=== PATIENT | male | born 1980 | race Caucasian/White ===

== ENCOUNTER 2018-09-22 13:49 | Emergency (ER) | payer OTHER, MEDICARE ==
[~2018-09-22] VITALS: Ht 172.7 cm; Wt 109.1 kg
[~2018-09-22 13:49] MED LIST: /CELE20CA; /ESOM40CA OR; SKEL800T5; VENL37.5; VENL75TA2; VICO5TAB
[2018-09-22] MEDS ORDERED: CRES40TA PO (14:01)
[2018-09-22] MEDS ORDERED: OLAN10TA2 PO (14:01)
[2018-09-22] MEDS ORDERED: GEMF600T5 PO (14:01)
[2018-09-22] MEDS ORDERED: NITR0.4S14 SL (14:01)
[2018-09-22] MEDS ORDERED: OMEP20CA3 PO (14:01)
[2018-09-22] MEDS ORDERED: GABA-843 PO (14:01)
[2018-09-22] MEDS ORDERED: CETI10CH PO (14:01)
[2018-09-22] MEDS ORDERED: HYDR-4514 PO (14:01)
[2018-09-22] MEDS ORDERED: LAMO200T2 PO (14:01)
[2018-09-22] MEDS ORDERED: PRAZ1CAP PO ×2 (14:01)
[2018-09-22] MEDS ORDERED: DICL75TA PO (14:01)
[2018-09-22] MEDS ORDERED: VITA50005 PO (14:01)
[2018-09-22] MEDS ORDERED: CLON0.5T8 PO (14:01)
[2018-09-22] MEDS ORDERED: LEXA1TAB2 PO (14:01)
[2018-09-22] MEDS ORDERED: GI COCKTAIL 50ML BTL(HYOSCYAMINE/MAALOX/LIDOCAINE VISCOUS)(1:3:1) PO ONE (14:15)
[2018-09-22 14:22] LABS: BASO % 0.4 % (0.0-1.0); EOS # 0.1 10^3/uL (0.0-0.50); EOS % 1.6 % (0.0-3.0); HEMATOCRIT 41.8 % (42.0-52.0); HEMOGLOBIN 14.7 g/dl (13.5-17.5); LYMPH # 2.6 10^3/uL (1.5-4.5); LYMPH % 36.4 % (24.0-44.0); MEAN CORPUSCULAR HEMOGLOBIN 33.6 pg (27.0-33.0); MEAN CORPUSCULAR HGB CONC 35.2 g/dl (32.0-36.5); MEAN CORPUSCULAR VOLUME 95.7 fl (80.0-96.0); MONO # 0.6 10^3/uL (0.0-0.8); MONO % 8.9 % (0.0-5.0); NEUTROPHILS # 3.7 10^3/uL (1.8-7.7); NEUTROPHILS % 52.4 % (36.0-66.0); PLATELET COUNT, AUTOMATED 132 10^3/uL (150-450); RED BLOOD COUNT 4.37 10^6/uL (4.30-6.10)
--- NOTE | 2018-09-22 14:26 | REP ---
Clinical: Chest pain . Comparison: None . Findings: The mediastinum and cardiac silhouette are stable and within normal limits for portable technique. Subtle left lower lobe infiltrate is suggested and should be correlated with auscultation. No effusion. No pneumothorax. Impression: Left lower lobe infiltrate suggested. Electronically Signed by Gumaro Roa MD 09/22/2018 02:17 P
[2018-09-22] MEDS ORDERED: SUCRALFATE SUSP 1GM/10ML UD PO ONE (14:30)
[2018-09-22 14:32] LABS: INR 1.01; PROTHROMBIN TIME 13.4 SECONDS (12.1-14.4)
[2018-09-22 14:35] LABS: D-DIMER QUANT 292.18 ng/ml (<500)
[2018-09-22 14:55] LABS: ALBUMIN 3.9 GM/DL (3.2-5.2); ALT/SGPT 72 U/L (12-78); BILIRUBIN,DIRECT 0.1 MG/DL (0.0-0.2); BILIRUBIN,TOTAL 0.4 MG/DL (0.2-1.0); BLOOD UREA NITROGEN 13 MG/DL (7-18); CALCIUM LEVEL 8.3 MG/DL (8.5-10.1); CARBON DIOXIDE LEVEL 25 MEQ/L (21-32); CHLORIDE LEVEL 111 MEQ/L (98-107); CPK CREATINE PHOSPHOKINASE 378 U/L (39-308); CREATININE FOR GFR 1.01 MG/DL (0.70-1.30); GLOMERULAR FILTRATION RATE > 60.0 (>60); GLUCOSE, FASTING 90 MG/DL (70-100); LIPASE 122 U/L (73-393); MB/CK RELATIVE INDEX 1.08 (< OR =4); NT-PRO BNP 42 PG/ML (<125); POTASSIUM SERUM 4.1 MEQ/L (3.5-5.1); SODIUM LEVEL 143 MEQ/L (136-145); TOTAL PROTEIN 6.5 GM/DL (6.4-8.2); TROPONIN I < 0.02 NG/ML (< 0.10)
[2018-09-22] MEDS ORDERED: ISOVUE-370 76% 100ML VIAL (Q9967) As Ordered ONE (15:14)
--- NOTE | 2018-09-22 15:42 | REP ---
Clinical: Acute chest pain. Technique: Axial contrast enhanced images from the thoracic inlet to the upper abdomen using 100 ml Isovue 370 intravenous contrast material with coronal and sagittal re-formations. Findings: Satisfactory enhancement of the pulmonary vasculature is achieved and no filling defects are identified to suggest pulmonary embolus. Thoracic aorta is normal caliber without aneurysm or dissection. Heart and pericardium are normal. Bilateral lung arteaga are well aerated and clear without acute pulmonary parenchymal consolidation or atelectasis. No pleural effusion/reaction. No pneumothorax. No adenopathy. 3 mm and 7 mm noncalcified densities are identified in the basilar right upper lobe (images 56; 58). Limited upper abdomen suggests fatty infiltration to the liver with few prominent lymph nodes at the greg hepatis measuring approximately 2.1 cm maximal diameter. Impression: 1. No evidence for pulmonary embolus. 2. No acute pleuroparenchymal or mediastinal process. 3. Two noncalcified nodules in the basilar right upper lobe warrants followup examination in 6-9 months. 4. Hepatic steatosis suggested along with few prominent lymph nodes at the greg hepatis. Electronically Signed by Gumaro Roa MD 09/22/2018 03:33 P
[2018-09-22] MEDS ORDERED: SUCR1SS PO (15:57)
[2018-09-22 16:15] VITALS: BP 117/74
--- NOTE | 2018-09-23 07:23 | ECGEPIP ---
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
--- NOTE | 2018-09-23 17:11 | ED PDOC ---
Post-Departure Follow-Up Dr Orlando Remy faxed formal report of cta chest for fu Jyada Salcido MD Sep 23, 2018 17:11
== END 2018-09-22 16:33 | disposition home or self-care (01) ==
LOC: M ED 13:49
DX: R07.9 Chest pain, unspecified (principal); R06.02 Shortness of breath; R91.8 Other nonspecific abnormal finding of lung field; K21.9 Gastro-esophageal reflux disease without esophagitis; E78.5 Hyperlipidemia, unspecified; F43.10 Post-traumatic stress disorder, unspecified; G47.30 Sleep apnea, unspecified; Z99.89 Dependence on other enabling machines and devices; G89.29 Other chronic pain; Z79.899 Other long term (current) drug therapy; Z88.8 Allergy status to other drugs, medicaments and biological substances; F17.210 Nicotine dependence, cigarettes, uncomplicated
CPT/HCPCS: 36415; 71045; 71275; 80048; 80076; 82550; 82553; 83690; 83880; 84443; 84484; 85025; 85379; 85610; 93005; 93041; 94760; 99285; Q9967

== ENCOUNTER → 2019-06-14 | Outpatient (CLI) | payer OTHER ==
[~2019-06-14] MED LIST changes: -/CELE20CA; -/ESOM40CA OR; +CELE1CAP4; +CETI10CH PO; +CLON0.5T8 PO; +CRES40TA PO; +DICL75TA PO; +GABA-843 PO; +GEMF600T5 PO; +HYDR-4514 PO; +LAMO200T2 PO; +LEXA1TAB2 PO; +NEXI1CAP3 OR; +NITR0.4S14 SL; +OLAN10TA2 PO; +OMEP20CA4 PO; +PRAZ1CAP PO; +SUCR1SS PO; +VITA50005 PO
--- NOTE | 2019-06-25 02:11 | ECWPNPC ---
PATIENT NAME: LASHAWN MITTAL : 1980 GENDER: MALE VISIT DATE: 06/14/2019 DISCHARGE DATE: 06/14/19 1209 VISIT LOCKED DATE TIME: PHYSICIAN: JORDON MORENO MD RESOURCE: JORDON MORENO MD REASON FOR APPOINTMENT 1. CHRONIC THORACIC PAIN HISTORY OF PRESENT ILLNESS PAIN SCREENING: PATIENT HAS A COMPLAINT OF ACUTE OR CHRONIC PAIN :YES 39 YEAR OLD MALE PATIENT WITH A HISTORY OF CHRONIC BACK PAIN. THE PATIENT DESCRIBES THE PAIN SHARP, STABBING, SHOOTING, AND DAILY WITH A PAIN SCORE OF 4-6/10 DEPENDING ON PHYSICAL ACTIVITY. THE PATIENT STATES HIS MAIN PAIN IS IN HIS THORACIC AND LOW BACK, WITH RADIATION DOWN MAINLY HIS LEFT BUTTOCK. 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 THE PATIENT SAYS HIS PAIN IS AFFECTING HIS ABILITY TO PERFORM HIS DAILY ACTIVITIES SUCH MOVING AROUND, RESTING, AND WORKING AROUND HIS HOUSE. PATIENT DENIES UNEXPLAINABLE WEIGHT LOSS, FEVER, CHILLS, NEW CHANGES ON HIS URINARY OR BOWEL CONTROL. FALL RISK SCREENING: SCREENING :NO FALLS REPORTED IN THE LAST YEAR CURRENT MEDICATIONS TAKING CETIRIZINE HCL 10 MG TABLET 1 TABLET ORALLY ONCE A DAY TAKING OLANZAPINE 10 MG TABLET DISINTEGRATING 1 TABLET ORALLY ONCE A DAY TAKING ROSUVASTATIN CALCIUM 40 MG TABLET 1 TABLET ORALLY ONCE A DAY TAKING PRAZOSIN HCL 2 MG CAPSULE 1 CAPSULE AT BEDTIME ORALLY ONCE A DAY TAKING GEMFIBROZIL 600 MG TABLET 1 TABLET ORALLY DAILY TAKING DULOXETINE HCL 30 MG CAPSULE DELAYED RELEASE PARTICLES 1 CAPSULE ORALLY DAILY TAKING DICLOFENAC 35 MG CAPSULE 1 CAPSULE WITH FOOD OR MILK NEEDED ORALLY THREE TIMES A DAY TAKING OMEPRAZOLE 40 MG CAPSULE DELAYED RELEASE 1 CAPSULE ORALLY ONCE A DAY TAKING CHOLECALCIFEROL 1000 UNIT CAPSULE 1 CAPSULE ORALLY ONCE A DAY TAKING GABAPENTIN 300 MG CAPSULE 2 CAPSULE ORALLY 2 TABS AT DINNER AND 4 TABS AT BEDTIME TAKING LAMOTRIGINE 200 MG TABLET 1 TABLETS ORALLY BID TAKING CLONAZEPAM 0.5 MG TABLET 1 TABLET AT BEDTIME ORALLY ONCE A DAY TAKING HYDROCODONE-ACETAMINOPHEN 7.5-325 MG TABLET 1 TABLET NEEDED ORALLY EVERY 6 HRS TAKING DIAZEPAM 5 MG TABLET 1 TABLET NEEDED ORALLY ONCE A DAY MEDICATION LIST REVIEWED AND RECONCILED WITH THE PATIENT PAST MEDICAL HISTORY HYPERLIPIDEMIA CHRONIC BACK PAIN ACID REFLUX POST TRAUMATIC STRESS DISORDER SLEEP APNEA SCOLIOSIS ALLERGIES NAPROXEN: ANAPHYLAXIS SURGICAL HISTORY HERNIA REPAIR 09/2014 FAMILY HISTORY PT DENIES ANY FAMILY HISTORY OF DIABETES, HEART DISEASE, HYPERTENSION, CANCER, AND STROKE. SOCIAL HISTORY GENERAL: TOBACCO USE ARE YOU A:NONSMOKER HOUSING: OWNS HOME. EDUCATION LEVEL OF EDUCATION:HIGH SCHOOL LANGUAGE LANGUAGES SPOKEN:TURKISH RECREATIONAL DRUG USE DRUG USE?NO LEARNING BARRIERS / SPECIAL NEEDS BARRIERS TO LEARNING?NO HEARING IMPAIRED?YES :HEARING AIDES VISION IMPAIRED?NO COGNITIVELY IMPAIRED?NO PT STATES HE DOES HAVE DIFFICULTY WRITING, HE IS LEFT HANDED AND HAS TRIGGER FINGER IN LEFT HAND READINESS TO LEARN?YES PAIN CLINIC PFS, CLERGY, PUBLIC HEALTH REFERRALS HAS THE PATIENT BEEN EDUCATED REGARDING HIS/HER PLAN OF CARE?YES HAS THE PATIENT BEEN EDUCATED REGARDING PAIN, THE RISK FOR PAIN, THE IMPORTANCE OF EFFECTIVE PAIN MANAGEMENT, AND THE PAIN ASSESSMENT PROCESS?YES LATEX QUESTIONNAIRE LATEX ALLERGY : HAVE YOU EVER DEVELOPED ANY TYPE OF REACTION AFTER HANDLING LATEX PRODUCTS SUCH RUBBER GLOVES, CONDOMS, DIAPHRAGMS, BALLOONS, SOCKS, OR UNDERWEAR?NO LATEX ALLERGY : HAVE YOU EVER DEVELOPED ANY TYPE OF REACTION DURING OR AFTER DENTAL APPOINTMENT, VAGINAL/RECTAL EXAMINATION, SURGICAL PROCEDURE, OR ANY OTHER EXPOSURE?NO LATEX RISK : HAVE YOU EVER HAD ANY DIFFICULTY BREATHING OR HIVES AFTER EATING OR HANDLING ANY FRUITS, OR VEGETABLES; SUCH KIWI, BANANAS, STONE FRUITS, OR CHESTNUTSNO LATEX RISK : DO YOU HAVE A PREVIOUS PERSONAL HISTORY OF MORE THAN NINE SURGERIES, SPINA BIFIDA, OR REPEATED CATHERIZATIONS? NO LATEX RISK : ARE YOU FREQUENTLY EXPOSED TO LATEX PRODUCTS IN YOUR OCCUPATION?NO DATE ASKED : 06/14/2019 CAFFEINE CAFFEINE USE?YES DRINKS MULTIPLE ENERGY DRINKS AND COFFEE DAILY ADVANCE DIRECTIVE ADVANCE DIRECTIVE DISCUSSED WITH PATIENT:YES PT DOES NOT HAVE HCP AND DECLINES INFO AND ASSISTANCE WITH FORM TODAY 06-14-19 YARSANISM [id number] MU-ISM MARITAL STATUS: M, . ALCOHOL SCREENING DID YOU HAVE A DRINK CONTAINING ALCOHOL IN THE PAST YEAR?NO POINTS0 INTERPRETATIONNEGATIVE OCCUPATION: RETIRED . REVIEWED WITH PATIENT 06-14-19 1100 BV. HOSPITALIZATION/MAJOR DIAGNOSTIC PROCEDURE SEE SURGERY ABOVE REVIEW OF SYSTEMS REVIEWED BY: PROVIDER: JORDON MORENO MD . CONSTITUTIONAL: ANY CHANGE IN YOUR MEDICAL CONDITION? NO . CHILLS NO . FEVER NO . INFECTION: DO YOU HAVE NEW INFECTIONS? NO . DO YOU HAVE HISTORY OF MRSA? NO . MUSCULOSKELETAL: ANY NEW PATTERNS OF PAIN OR NUMBNESS? NO . SYTEMIC LUPUS NO . GASTROENTEROLOGY: ANY NEW CHANGE IN BOWEL CONTROL? NO . BARRETTS ESOPHAGUS NO . CIRRHOSIS NO . HEPATITIS NO . LIVER FAILURE NO . ACID REFLUX YES, ON MEDICATION . UNEXPLAINED WEIGHT LOSS NO . GENITOURINARY: ANY NEW CHANGE IN BLADDER CONTROL? NO . IS THERE A CHANCE YOU COULD BE ? NO . HEMATOLOGY/LYMPH: DO YOU TAKE ANY BLOOD THINNERS? (FOR EXAMPLE- COUMADIN, PLAVIX, AGGRENOX, PLATEL, PRADAXA, OR XARELTO) NO . WHEN WAS YOUR LAST DOSE? DATE: TIME: . LOW PLATELET COUNT NO . SICKLE CELL DISEASE NO . VON WILLIEBRANDS NO . FACTOR V LEIDEN NO . THALLASEMIA NO . 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 EASY BRUISING NO . NEUROLOGY: HAVE YOU FALLEN IN THE PAST 12 MONTHS? NO . ANY NEW EXTREMITY NUMBNESS OR WEAKNESS? NO . HEAD INJURY YES, HUMVEE ACCIDENT IN [place] 2006 . DEMENTIA NO . CEREBRAL PALSY NO . MULTIPLE SCLEROSIS NO . DIZZINESS NO . HEADACHE NO . STROKES NO . VERTIGO NO . CARDIOLOGY: DO YOU HAVE A PACEMAKER OR DEFIBRILLATOR? NO . ANGINA NO . HEART ATTACK YES, PT STATES HE HAS BEEN TOLD HE HAS HISTORY OF HEART ATTACK IN PAST AFTER EKG READING, DOES NOT RECALL WHEN . HEART SURGERY NO . CONGESTIVE HEART FAILURE/FLUID OVERLOAD NO . CHEST PAIN NO . HIGH BLOOD PRESSURE NO . RESPIRATORY: HAVE YOU BEEN SICK IN THE PAST WEEK? NO . FEVER NO . FLU LIKE SYMPTOMS? NO . CPAP YES, DIAGNOSED WITH SLEEP APNEA . BYPAP NO . ASTHMA NO . EMPHYSEMA NO . CHRONIC LUNG DISEASES NO . SHORTNESS OF BREATH ON EXERTION NO . COUGH NO . SNORING NO . INTEGUMENTARY: DO YOU HAVE ANY RASHES OR OPEN SORES? NO . ALLERGIC/IMMUNO: ARE YOU ALLERGIC TO IV DYE? NO . ANY NEW ALLERGIES? NO . PSYCHIATRIC: DO YOU HAVE THOUGHTS OF HURTING YOURSELF OR SOMEONE ELSE? NO . ARE YOU ABUSED, NEGLECTED, OR IN AN UNSAFE ENVIRONMENT? NO . ENDOCRINOLOGY: ARE YOU DIABETIC? NO . THYROID DISORDER NO . OTHER: DO YOU NEED ANY PRESCRIPTIONS? NO . IF YES, PLEASE LIST: ____ . ANY NEW PROBLEMS WITH YOUR MEDICATIONS? NO . WHEN DID YOU LAST EAT? ____ . WHEN DID YOU LAST DRINK? ____ . WHAT DID YOU LAST DRINK? ____ . NAME OF PERSON DRIVING YOU HOME? ____ . DO YOU HAVE ANY OTHER QUESTIONS OR CONCERNS NO . VITAL SIGNS WT 276.6 LBS, HT 68 IN, BMI 42.05 INDEX, BP 174/86 MM HG, HR 90 /MIN, RR 18 /MIN, TEMP 98.9 F, OXYGEN SAT % 98%, NA INITIALS SC 10:37, REVIEWED BY: BV. EXAMINATION GENERAL EXAMINATION: PATIENT IS ALERT O X 3 AND COOPERATIVE. LUNGS CLEAR, TO AUSCULTATION. HEART: NO MURMURS OR GALLOPS; FACIAL CRANIAL NERVES ARE GROSSLY NORMAL. GOOD SYMMETRY OF FACIAL MUSCLE MOVEMENT. NORMAL VISUAL HILL. ANTALGIC WALK. PATIENT IS LIMPING FROM THE LEFT LEG. TENDERNESS IN THE BILATERAL THORACIC AND LOW BACK AREA. PRESENCE OF BANDS OF TISSUE AND TRIGGER POINTS WITH RESTRICTION OF MOVEMENT OF THE THORACIC AND LOW BACK AREAS. LEFT LEG IS WEAKER AT EXTENSION AND FLEXION. STRAIGHT LEG RAISE OF THE LEFT LEG IS POSITIVE AT 50 DEGREES FOR RADICULOPATHY. MRI OF THE THORACIC SPINE DONE ON 09/30/2008 SHOWS A BULGING DISC AT T11 LEVEL. ASSESSMENTS OTHER CHRONIC PAIN - G89.29 (PRIMARY) PAIN IN THORACIC SPINE - M54.6 MYALGIA, OTHER SITE - M79.18 LOW BACK PAIN - M54.5 TREATMENT OTHER CHRONIC PAIN MRI : THORACIC [id number],ASHLEY 06/18/2019 12:27:27 PM > STEPH MCNAMARA 06/14/2019 1:06:02 PM > NO AUTH REQUIRED FOR [facility]. PATIENT HAS AUTH FOR VISITS/PROCEDURES/DIAG 180 DAYS FROM 03/20/19. CLINICAL NOTES: WE DISCUSSED SEVERAL ISSUES WITH MR. MITTAL'S PAIN MANAGEMENT CASE. I AM ORDERING FOR AN UPDATED THORACIC MRI TO BE PERFORMED TO COMPARE WITH HIS LAST ONE DONE IN 2008. DUE TO THE TRIGGER POINTS, BANDS OF TISSUE, AND RESTRICTION OF MOVEMENT, I WOULD LIKE TO MOVE FORWARD WITH A TRIGGER POINT INJECTION AT THIS TIME. WE DISCUSSED THE BENEFITS, RISKS, AND ALTERNATIVES OF THE INJECTION AND THE PATIENT WOULD LIKE TO PROCEED. I AM LOOKING FOR LONG LASTING PAIN RELIEF FROM THIS INJECTION FOR THE PATIENT. THE PATIENT WILL FOLLOW UP IN SEVERAL WEEKS AFTER HIS INJECTION. INSTRUCTIONS WERE GIVEN, QUESTIONS WERE ANSWERED, PATIENT REPORTS UNDERSTANDING AND AGREES WITH THE PLAN. I, SHAWANDA HERRING, DOCUMENTED THE ABOVE INFORMATION ACTING A SCRIBE FOR DR. MORENO. I HAVE REVIEWED THE ABOVE DOCUMENT, WRITTEN BY SHAWANDA HEMRIC SCRIBE AND I VERIFY THAT IT IS ACCURATE. DEAR BREANNA TERAN: THANK YOU FOR YOUR KIND REFERRAL OF LASHAWN MITTAL. IF YOU WANT TO DISCUSS HIS CASE WITH ME PLEASE CALL ME AT THE PAIN CENTER AT [phone]. SINCERELY, JORDON MORENO MD PAIN MEDICINE . PAIN IN THORACIC SPINE MRI : THORACIC [id number],ASHLEY 06/18/2019 12:27:27 PM > STEPH MCNAMARA 06/14/2019 1:06:02 PM > NO AUTH REQUIRED FOR VA. PATIENT HAS AUTH FOR VISITS/PROCEDURES/DIAG 180 DAYS FROM 03/20/19. PROCEDURE CODES FA211 ESTABILISHED PATIENT [facility] FACILITY CHARGE G8427 CURRENT MEDS W/DOSAGES DOCUMENTED G8730 PAIN ASSESS POS TOOL F/U PLAN DOC DISPOSITION & COMMUNICATION FOLLOW UP REASON: TPI/THORACIC MRI ORDERED ELECTRONICALLY SIGNED BY JORDON MORENO MD, ON 06/24/2019 AT 12:23 PM EST DISCLAIMER : THIS IS A VISIT SUMMARY EXTRACTED FROM THE [employer] CHART. IT IS NOT A COPY OF THE [employer] PROGRESS NOTE. MTDD
== END ==
LOC: M PAIN 10:30
PROVIDERS: ATTEND Anesthesiology
DX: M54.6 Pain in thoracic spine (principal); G89.29 Other chronic pain; M79.18 Myalgia, other site; M54.5 Low back pain; E78.5 Hyperlipidemia, unspecified; K21.9 Gastro-esophageal reflux disease without esophagitis; Z86.59 Personal history of other mental and behavioral disorders; G47.30 Sleep apnea, unspecified; M41.9 Scoliosis, unspecified; Z88.6 Allergy status to analgesic agent; E66.01 Morbid (severe) obesity due to excess calories; Z68.41 Body mass index [BMI] 40.0-44.9, adult; Z79.899 Other long term (current) drug therapy

== ENCOUNTER → 2019-07-15 | Outpatient (CLI) | payer OTHER ==
[~2019-07-15] MED LIST changes: +BUPIVACAINE HCL 0.25% 10 ML VIAL As Ordered ONE; +BUPIVACAINE HCL 0.25% 30 ML VIAL As Ordered ONE; +CLON0.5T2 PO; -CLON0.5T8 PO; -LAMO200T2 PO; +LAMO200T3 PO; +OMEP-172 PO; -OMEP20CA4 PO; +TRIAMCINOLONE ACETONIDE SUSP 40 MG/ML VIAL (J3301) As Ordered ONE
--- NOTE | 2019-07-31 02:40 | ECWPNPC ---
PATIENT NAME: LASHAWN MITTAL : 1980 GENDER: MALE VISIT DATE: 07/15/2019 DISCHARGE DATE: 07/15/19 1051 VISIT LOCKED DATE TIME: PHYSICIAN: JORDON MORENO MD RESOURCE: JORDON MORENO MD REASON FOR APPOINTMENT 1. THORACIC TPI HISTORY OF PRESENT ILLNESS HISTORY OF PRESENT ILLNESS: PAIN THE PATIENT DESCRIBES THE PAIN... FALL RISK SCREENING: SCREENING :NO FALLS REPORTED IN THE LAST YEAR CURRENT MEDICATIONS TAKING CETIRIZINE HCL 10 MG TABLET 1 TABLET ORALLY ONCE A DAY TAKING OLANZAPINE 10 MG TABLET DISINTEGRATING 1 TABLET ORALLY ONCE A DAY TAKING ROSUVASTATIN CALCIUM 40 MG TABLET 1 TABLET ORALLY ONCE A DAY TAKING PRAZOSIN HCL 2 MG CAPSULE 1 CAPSULE AT BEDTIME ORALLY ONCE A DAY TAKING GEMFIBROZIL 600 MG TABLET 1 TABLET ORALLY DAILY TAKING DULOXETINE HCL 30 MG CAPSULE DELAYED RELEASE PARTICLES 1 CAPSULE ORALLY DAILY TAKING DICLOFENAC 35 MG CAPSULE 1 CAPSULE WITH FOOD OR MILK NEEDED ORALLY THREE TIMES A DAY TAKING OMEPRAZOLE 40 MG CAPSULE DELAYED RELEASE 1 CAPSULE ORALLY ONCE A DAY TAKING CHOLECALCIFEROL 1000 UNIT CAPSULE 1 CAPSULE ORALLY ONCE A DAY TAKING GABAPENTIN 300 MG CAPSULE 2 CAPSULE ORALLY 2 TABS AT DINNER AND 4 TABS AT BEDTIME TAKING LAMOTRIGINE 200 MG TABLET 1 TABLETS ORALLY BID TAKING CLONAZEPAM 0.5 MG TABLET 1 TABLET AT BEDTIME ORALLY ONCE A DAY TAKING HYDROCODONE-ACETAMINOPHEN 7.5-325 MG TABLET 1 TABLET NEEDED ORALLY EVERY 6 HRS TAKING DIAZEPAM 5 MG TABLET 1 TABLET NEEDED ORALLY ONCE A DAY MEDICATION LIST REVIEWED AND RECONCILED WITH THE PATIENT PAST MEDICAL HISTORY HYPERLIPIDEMIA CHRONIC BACK PAIN ACID REFLUX POST TRAUMATIC STRESS DISORDER SLEEP APNEA SCOLIOSIS ALLERGIES NAPROXEN: ANAPHYLAXIS SURGICAL HISTORY HERNIA REPAIR 09/2014 FAMILY HISTORY FATHER: ALIVE MOTHER: ALIVE PT DENIES ANY FAMILY HISTORY OF DIABETES, HEART DISEASE, HYPERTENSION, CANCER, AND STROKE, HAS NOT SEEN PARENTS IN OVER 20 YEARS, UNAWARE OF MEDICAL ISSUES. SOCIAL HISTORY GENERAL: TOBACCO USE ARE YOU A:NONSMOKER HOUSING: OWNS HOME. EDUCATION LEVEL OF EDUCATION:HIGH SCHOOL LANGUAGE LANGUAGES SPOKEN:UGANDAN RECREATIONAL DRUG USE DRUG USE?NO LEARNING BARRIERS / SPECIAL NEEDS BARRIERS TO LEARNING?NO HEARING IMPAIRED?YES VISION IMPAIRED?NO COGNITIVELY IMPAIRED?NO PT STATES HE DOES HAVE DIFFICULTY WRITING, HE IS LEFT HANDED AND HAS TRIGGER FINGER IN LEFT HAND :HEARING AIDES READINESS TO LEARN?YES PAIN CLINIC PFS, CLERGY, PUBLIC HEALTH REFERRALS HAS THE PATIENT BEEN EDUCATED REGARDING HIS/HER PLAN OF CARE?YES HAS THE PATIENT BEEN EDUCATED REGARDING PAIN, THE RISK FOR PAIN, THE IMPORTANCE OF EFFECTIVE PAIN MANAGEMENT, AND THE PAIN ASSESSMENT PROCESS?YES LATEX QUESTIONNAIRE LATEX ALLERGY : HAVE YOU EVER DEVELOPED ANY TYPE OF REACTION AFTER HANDLING LATEX PRODUCTS SUCH RUBBER GLOVES, CONDOMS, DIAPHRAGMS, BALLOONS, SOCKS, OR UNDERWEAR?NO PT REPORTS A RASH FROM A RUBBER SMART WATCH BAND, UNSURE IF IT IS LATEX OR NOT. LATEX ALLERGY : HAVE YOU EVER DEVELOPED ANY TYPE OF REACTION DURING OR AFTER DENTAL APPOINTMENT, VAGINAL/RECTAL EXAMINATION, SURGICAL PROCEDURE, OR ANY OTHER EXPOSURE?NO LATEX RISK : HAVE YOU EVER HAD ANY DIFFICULTY BREATHING OR HIVES AFTER EATING OR HANDLING ANY FRUITS, OR VEGETABLES; SUCH KIWI, BANANAS, STONE FRUITS, OR CHESTNUTSNO LATEX RISK : DO YOU HAVE A PREVIOUS PERSONAL HISTORY OF MORE THAN NINE SURGERIES, SPINA BIFIDA, OR REPEATED CATHERIZATIONS? NO LATEX RISK : ARE YOU FREQUENTLY EXPOSED TO LATEX PRODUCTS IN YOUR OCCUPATION?NO DATE ASKED : 06/14/2019 CAFFEINE CAFFEINE USE?YES DRINKS MULTIPLE ENERGY DRINKS AND COFFEE DAILY ADVANCE DIRECTIVE ADVANCE DIRECTIVE DISCUSSED WITH PATIENT:YES PT DOES NOT HAVE HCP AND DECLINES INFO AND ASSISTANCE WITH FORM TODAY LATTER-DAY [id number] RELIGIOUS MARITAL STATUS: M, . ALCOHOL SCREENING DID YOU HAVE A DRINK CONTAINING ALCOHOL IN THE PAST YEAR?NO POINTS0 INTERPRETATIONNEGATIVE OCCUPATION: RETIRED . REVIEWED WITH PATIENT 06-14-19 1100 BVREVIEWED WITH PATIENT LS. HOSPITALIZATION/MAJOR DIAGNOSTIC PROCEDURE SEE SURGERY ABOVE REVIEW OF SYSTEMS REVIEWED BY: PROVIDER: . CONSTITUTIONAL: ANY CHANGE IN YOUR MEDICAL CONDITION? NO . CHILLS NO . FEVER NO . INFECTION: DO YOU HAVE NEW INFECTIONS? NO . DO YOU HAVE HISTORY OF MRSA? NO . MUSCULOSKELETAL: ANY NEW PATTERNS OF PAIN OR NUMBNESS? NO . GASTROENTEROLOGY: ANY NEW CHANGE IN BOWEL CONTROL? NO . GENITOURINARY: ANY NEW CHANGE IN BLADDER CONTROL? NO . IS THERE A CHANCE YOU COULD BE ? NO . HEMATOLOGY/LYMPH: DO YOU TAKE ANY BLOOD THINNERS? (FOR EXAMPLE- COUMADIN, PLAVIX, AGGRENOX, PLATEL, PRADAXA, OR XARELTO) NO . WHEN WAS YOUR LAST DOSE? DATE: TIME: . NEUROLOGY: HAVE YOU FALLEN IN THE PAST 12 MONTHS? YES PT REPORTS HE SLIPPED AND FELL, FELL ONTO HIS KNEES AND SCRAPED HIS KNEES UP, BUT DENIES INJURY . ANY NEW EXTREMITY NUMBNESS OR WEAKNESS? NO . CARDIOLOGY: DO YOU HAVE A PACEMAKER OR DEFIBRILLATOR? NO . RESPIRATORY: HAVE YOU BEEN SICK IN THE PAST WEEK? NO . FEVER NO . FLU LIKE SYMPTOMS? NO . COUGH NO . INTEGUMENTARY: DO YOU HAVE ANY RASHES OR OPEN SORES? NO . ALLERGIC/IMMUNO: ARE YOU ALLERGIC TO IV DYE? NO . ANY NEW ALLERGIES? NO . PSYCHIATRIC: DO YOU HAVE THOUGHTS OF HURTING YOURSELF OR SOMEONE ELSE? NO . ARE YOU ABUSED, NEGLECTED, OR IN AN UNSAFE ENVIRONMENT? NO . ENDOCRINOLOGY: ARE YOU DIABETIC? NO . OTHER: DO YOU NEED ANY PRESCRIPTIONS? NO . IF YES, PLEASE LIST: ____ . ANY NEW PROBLEMS WITH YOUR MEDICATIONS? NO . WHEN DID YOU LAST EAT? ____07/14/19 2100 . WHEN DID YOU LAST DRINK? ____07/15/19 0700 . WHAT DID YOU LAST DRINK? ____07/15/19 0700 WATER FOR MEDS . NAME OF PERSON DRIVING YOU HOME? ____WIFE SELENE . DO YOU HAVE ANY OTHER QUESTIONS OR CONCERNS NO . VITAL SIGNS WT 269.0 LBS, HT 68 IN, BMI 40.90 INDEX, BP 136/85 MM HG, HR 73 /MIN, RR 18 /MIN, TEMP 97.6 F, OXYGEN SAT % 97%, NA INITIALS AW 0914. ASSESSMENTS MYALGIA, OTHER SITE - M79.18 (PRIMARY) PROCEDURES PN TRIGGER POINT INJECTION WITH STEROIDS PRE PROCEDURE DIAGNOSIS 1. MYALGIA 2. PAIN AT BILATERAL THORACIC AREA. POST PROCEDURE DIAGNOSIS 1. MYALGIA 2. PAIN AT BILATERAL THORACIC AREA. PROCEDURE TRIGGER POINT INJECTION AT RIGHT AND LEFT THORACIC AREA. SURGEON DR. JORDON MORENO MANAGER LAB NONE ANESTHESIA LOCAL PRE PROCEDURE NOTE THE PATIENT HAS A HISTORY OF CHRONIC PAIN AT THE RIGHT AND LEFT THORACIC AREA. I EVALUATED THE PATIENT AND REVIEWED THE CHART. THERE IS EVIDENCE OF BANDS OF TISSUE WITH RESTRICTION OF MOVEMENT AND PRESENCE OF TRIGGER POINT AT THE AFFECTED AREA. I WENT OVER THE RISKS, ALTERNATIVES, AND BENEFITS ASSOCIATED WITH THIS PROCEDURE. THE PATIENT WOULD LIKE TO PROCEED AND GIVES CONSENT TO PERFORM THE PROCEDURE. THE PATIENT DENIES UNEXPLAINABLE WEIGHT LOSS, FEVER, CHILLS, OR NEW CHANGES IN URINARY OR BOWEL CONTROL DESCRIPTION OF PROCEDURE THE PATIENT WAS BROUGHT TO THE PROCEDURE ROOM AND PLACED IN THE SITTING POSITION. THE AREA WAS CLEANED WITH ALCOHOL. THE PROCEDURE WAS DONE USING ASEPTIC STERILE TECHNIQUE. I CHECKED LATERALITY AND THE LEVEL WHERE THE PROCEDURE WAS GOING TO BE PERFORMED WITH THE PATIENT AND THE SUPPORTING STAFF AT THE MOMENT OF THE TIME OUT IN THE PROCEDURE ROOM. USING A 25-GAUGE NEEDLE, TRIGGER POINTS WERE INJECTED AT THE RIGHT AND LEFT THORACIC AREA WITH A TOTAL OF 40 ML OF BUPIVACAINE 0.25% AND KENALOG 40 MG. THERE WAS NO EVIDENCE OF BLOOD, PARESTHESIA OR CEREBROSPINAL FLUID DURING THE PROCEDURE. THE PATIENT WAS SENT TO THE RECOVERY ROOM. THE PATIENT WAS MOVING THE EXTREMITIES AND DOING WELL. THERE WAS NO COMPLICATION DURING THE PROCEDURE POST PROCEDURE NOTE THE PATIENT WILL BE SEEN IN A FOLLOW UP IN THE NEXT FEW WEEKS. INSTRUCTIONS WERE GIVEN, QUESTIONS WERE ANSWERED, AND THE PATIENT EXPRESSED UNDERSTANDING AND AGREES WITH THE PLAN. I, SHAWANDA HERRING, DOCUMENTED THE ABOVE INFORMATION ACTING A SCRIBE FOR DR. MORENO. I HAVE REVIEWED THE ABOVE DOCUMENT, WRITTEN BY SHAWANDA HERRING SCRIBE AND I VERIFY THAT IT IS ACCURATE. PROCEDURE CODES 55029 INJ TRIGGER POINT 08/22 [facility] [place] & COMMUNICATION FOLLOW UP 3 WEEKS ELECTRONICALLY SIGNED BY JORDON MORENO MD, MD ON 07/30/2019 AT 07:49 PM EST DISCLAIMER : THIS IS A VISIT SUMMARY EXTRACTED FROM THE [employer] CHART. IT IS NOT A COPY OF THE [employer] PROGRESS NOTE. DESTINY
== END ==
LOC: M PAIN 09:30
PROVIDERS: ATTEND Anesthesiology
DX: M79.18 Myalgia, other site (principal); E78.5 Hyperlipidemia, unspecified; K21.9 Gastro-esophageal reflux disease without esophagitis; Z86.59 Personal history of other mental and behavioral disorders; G47.30 Sleep apnea, unspecified; Z88.6 Allergy status to analgesic agent; E66.01 Morbid (severe) obesity due to excess calories; Z68.41 Body mass index [BMI] 40.0-44.9, adult; Z79.899 Other long term (current) drug therapy
CPT/HCPCS: 20552; J3301

== ENCOUNTER → 2019-07-22 | Outpatient (CLI) | payer OTHER ==
[~2019-07-22] MED LIST changes: -BUPIVACAINE HCL 0.25% 10 ML VIAL As Ordered ONE; -BUPIVACAINE HCL 0.25% 30 ML VIAL As Ordered ONE; -OMEP-172 PO; +OMEP20CA4 PO; -TRIAMCINOLONE ACETONIDE SUSP 40 MG/ML VIAL (J3301) As Ordered ONE
--- NOTE | 2019-07-22 19:55 | REP ---
MRI thoracic spine: 07/22/2019. Indication: Thoracic pain. Comparison: CT completed earlier today and MRI completed 09/30/08. Technique: Multiplanar short and long TR sequences of the thoracic spine without IV Gadolinium were obtained. Findings: Scoliosis is redemonstrated and stable. T10/T11 disc bulge more prominent anteriorly and on the right is again noted. There is no significant narrowing of the spinal canal or cord compression. The neural foramina are patent throughout. No abnormal marrow or cord signal is present. Please see CT report for additional details. Impression: No significant focal disc herniation. No areas of significant spinal canal / neural foraminal narrowing. Electronically Signed by Dionicio Banerjee DO 07/22/2019 07:46 P
== END ==
LOC: M RAD 18:07
PROVIDERS: ATTEND Anesthesiology
DX: G89.29 Other chronic pain (principal); M54.6 Pain in thoracic spine

== ENCOUNTER → 2019-10-23 | Outpatient (CLI) | payer OTHER ==
[~2019-10-23] MED LIST changes: +OMEP1CAP73 PO; -OMEP20CA4 PO
--- NOTE | 2019-10-24 01:57 | ECWPNPC ---
PATIENT NAME: LASHAWN MITTAL : 1980 GENDER: MALE VISIT DATE: 10/23/2019 DISCHARGE DATE: 10/23/19 1215 VISIT LOCKED DATE TIME: PHYSICIAN: ASHLEIGH DAMON RESOURCE: ASHLEIGH DAMON REASON FOR APPOINTMENT 1. POST TPI/REVIEW THORACIC MRI HISTORY OF PRESENT ILLNESS HISTORY OF PRESENT ILLNESS: HERE FOR POST PROCEDURE FOLLOW-UP. HAD TRIGGER POINT INJECTIONS TO THE LOW BACK AREA ON 07/15/2019. REPORTS IMPROVEMENT IN PAIN POST PROCEDURE. RATING PAIN LEVEL A 3-5/10 VAS. PAIN IS AGGRAVATED WITH RANGE OF JOINT MOTION OF THE SPINE. DESCRIBES PAIN CONTINUOUS, SHARP AND ACHING. PAIN THE PATIENT DESCRIBES THE PAIN... FALL RISK SCREENING: SCREENING :NO FALLS REPORTED IN THE LAST YEAR CURRENT MEDICATIONS TAKING CETIRIZINE HCL 10 MG TABLET 1 TABLET ORALLY ONCE A DAY TAKING OLANZAPINE 10 MG TABLET DISINTEGRATING 1 TABLET ORALLY ONCE A DAY TAKING ROSUVASTATIN CALCIUM 40 MG TABLET 1 TABLET ORALLY ONCE A DAY TAKING PRAZOSIN HCL 2 MG CAPSULE 1 CAPSULE AT BEDTIME ORALLY ONCE A DAY TAKING GEMFIBROZIL 600 MG TABLET 1 TABLET ORALLY DAILY TAKING DULOXETINE HCL 30 MG CAPSULE DELAYED RELEASE PARTICLES 1 CAPSULE ORALLY DAILY TAKING DICLOFENAC 35 MG CAPSULE 1 CAPSULE WITH FOOD OR MILK NEEDED ORALLY THREE TIMES A DAY TAKING OMEPRAZOLE 40 MG CAPSULE DELAYED RELEASE 1 CAPSULE ORALLY ONCE A DAY TAKING CHOLECALCIFEROL 1000 UNIT CAPSULE 1 CAPSULE ORALLY ONCE A DAY TAKING GABAPENTIN 300 MG CAPSULE 2 CAPSULE ORALLY 2 TABS AT DINNER AND 4 TABS AT BEDTIME TAKING LAMOTRIGINE 200 MG TABLET 1 TABLETS ORALLY BID TAKING CLONAZEPAM 0.5 MG TABLET 1 TABLET AT BEDTIME ORALLY ONCE A DAY TAKING HYDROCODONE-ACETAMINOPHEN 7.5-325 MG TABLET 1 TABLET NEEDED ORALLY EVERY 6 HRS TAKING DIAZEPAM 5 MG TABLET 1 TABLET NEEDED ORALLY ONCE A DAY MEDICATION LIST REVIEWED AND RECONCILED WITH THE PATIENT PAST MEDICAL HISTORY HYPERLIPIDEMIA CHRONIC BACK PAIN ACID REFLUX POST TRAUMATIC STRESS DISORDER SLEEP APNEA SCOLIOSIS ALLERGIES NAPROXEN: ANAPHYLAXIS SURGICAL HISTORY HERNIA REPAIR 09/2014 FAMILY HISTORY FATHER: ALIVE MOTHER: ALIVE PT DENIES ANY FAMILY HISTORY OF DIABETES, HEART DISEASE, HYPERTENSION, CANCER, AND STROKE, HAS NOT SEEN PARENTS IN OVER 20 YEARS, UNAWARE OF MEDICAL ISSUES. SOCIAL HISTORY GENERAL: TOBACCO USE ARE YOU A:NONSMOKER VAPORYES HOUSING: OWNS HOME. EDUCATION LEVEL OF EDUCATION:HIGH SCHOOL LANGUAGE LANGUAGES SPOKEN:TAMAZIGHT RECREATIONAL DRUG USE DRUG USE?NO LEARNING BARRIERS / SPECIAL NEEDS BARRIERS TO LEARNING?NO HEARING IMPAIRED?YES VISION IMPAIRED?NO COGNITIVELY IMPAIRED?NO PT STATES HE DOES HAVE DIFFICULTY WRITING, HE IS LEFT HANDED AND HAS TRIGGER FINGER IN LEFT HAND :HEARING AIDES READINESS TO LEARN?YES PAIN CLINIC PFS, CLERGY, PUBLIC HEALTH REFERRALS HAS THE PATIENT BEEN EDUCATED REGARDING HIS/HER PLAN OF CARE?YES HAS THE PATIENT BEEN EDUCATED REGARDING PAIN, THE RISK FOR PAIN, THE IMPORTANCE OF EFFECTIVE PAIN MANAGEMENT, AND THE PAIN ASSESSMENT PROCESS?YES LATEX QUESTIONNAIRE LATEX ALLERGY : HAVE YOU EVER DEVELOPED ANY TYPE OF REACTION AFTER HANDLING LATEX PRODUCTS SUCH RUBBER GLOVES, CONDOMS, DIAPHRAGMS, BALLOONS, SOCKS, OR UNDERWEAR?NO PT REPORTS A RASH FROM A RUBBER SMART WATCH BAND, UNSURE IF IT IS LATEX OR NOT. LATEX ALLERGY : HAVE YOU EVER DEVELOPED ANY TYPE OF REACTION DURING OR AFTER DENTAL APPOINTMENT, VAGINAL/RECTAL EXAMINATION, SURGICAL PROCEDURE, OR ANY OTHER EXPOSURE?NO LATEX RISK : HAVE YOU EVER HAD ANY DIFFICULTY BREATHING OR HIVES AFTER EATING OR HANDLING ANY FRUITS, OR VEGETABLES; SUCH KIWI, BANANAS, STONE FRUITS, OR CHESTNUTSNO LATEX RISK : DO YOU HAVE A PREVIOUS PERSONAL HISTORY OF MORE THAN NINE SURGERIES, SPINA BIFIDA, OR REPEATED CATHERIZATIONS? NO LATEX RISK : ARE YOU FREQUENTLY EXPOSED TO LATEX PRODUCTS IN YOUR OCCUPATION?NO DATE ASKED : 06/14/2019 CAFFEINE CAFFEINE USE?YES DRINKS MULTIPLE ENERGY DRINKS AND COFFEE DAILY ADVANCE DIRECTIVE ADVANCE DIRECTIVE DISCUSSED WITH PATIENT:YES 10/23/2019 PT DOES NOT HAVE HCP AND DECLINES INFO AND ASSISTANCE WITH FORM TODAY. JS HOAHAOISM [id number] EVANGELICAL MARITAL STATUS: M, . ALCOHOL SCREENING DID YOU HAVE A DRINK CONTAINING ALCOHOL IN THE PAST YEAR?NO POINTS0 INTERPRETATIONNEGATIVE OCCUPATION: RETIRED . HOSPITALIZATION/MAJOR DIAGNOSTIC PROCEDURE SEE SURGERY ABOVE REVIEW OF SYSTEMS REVIEWED BY: PROVIDER: ASHLEIGH GARZON . CONSTITUTIONAL: ANY CHANGE IN YOUR MEDICAL CONDITION? NO . CHILLS NO . FEVER NO . INFECTION: DO YOU HAVE NEW INFECTIONS? NO . DO YOU HAVE HISTORY OF MRSA? NO . MUSCULOSKELETAL: ANY NEW PATTERNS OF PAIN OR NUMBNESS? NO . GASTROENTEROLOGY: ANY NEW CHANGE IN BOWEL CONTROL? NO . GENITOURINARY: ANY NEW CHANGE IN BLADDER CONTROL? NO . IS THERE A CHANCE YOU COULD BE ? NO . HEMATOLOGY/LYMPH: DO YOU TAKE ANY BLOOD THINNERS? (FOR EXAMPLE- COUMADIN, PLAVIX, AGGRENOX, PLATEL, PRADAXA, OR XARELTO) NO . WHEN WAS YOUR LAST DOSE? DATE: TIME: . NEUROLOGY: HAVE YOU FALLEN IN THE PAST 12 MONTHS? YES, STATES MULTIPLE FALLS RELATED TO SLIPPING/TRIPPING - STATES NO MAJOR INJURIES, NO ED VISIT . ANY NEW EXTREMITY NUMBNESS OR WEAKNESS? NO . CARDIOLOGY: DO YOU HAVE A PACEMAKER OR DEFIBRILLATOR? NO . RESPIRATORY: HAVE YOU BEEN SICK IN THE PAST WEEK? NO . FEVER NO . FLU LIKE SYMPTOMS? NO . COUGH NO . INTEGUMENTARY: DO YOU HAVE ANY RASHES OR OPEN SORES? NO . ALLERGIC/IMMUNO: ARE YOU ALLERGIC TO IV DYE? NO . ANY NEW ALLERGIES? NO . PSYCHIATRIC: DO YOU HAVE THOUGHTS OF HURTING YOURSELF OR SOMEONE ELSE? NO . ARE YOU ABUSED, NEGLECTED, OR IN AN UNSAFE ENVIRONMENT? NO . ENDOCRINOLOGY: ARE YOU DIABETIC? NO . OTHER: DO YOU NEED ANY PRESCRIPTIONS? NO . IF YES, PLEASE LIST: ____ . ANY NEW PROBLEMS WITH YOUR MEDICATIONS? NO . WHEN DID YOU LAST EAT? ____ . WHEN DID YOU LAST DRINK? ____ . WHAT DID YOU LAST DRINK? ____ . NAME OF PERSON DRIVING YOU HOME? ____ . DO YOU HAVE ANY OTHER QUESTIONS OR CONCERNS NO . VITAL SIGNS WT 283.0 LBS, HT 68 IN, BMI 43.03 INDEX, BP 162/90 MANUAL, HR 79 /MIN, RR 18 /MIN, TEMP 98.5 F, OXYGEN SAT % 94%, SAFE IN ENV? (Y/N) YES, REVIEWED BY: BASILIA. EXAMINATION GENERAL EXAMINATION: GENERAL AWAKE,ALERT ,PLEAASANT . PSYCH AFFECT NORMAL . LUNGS: LUNG HILL ARE CLEAR TO AUSCULTATION BILATERALLY. GOOD MOVEMENT OF AIR . HEART: S1, S2 IN A REGULAR RATE AND RHYTHM. NO SIGNIFICANT MURMURS, RUBS OR GALLOPS NOTED . MUSCULOSKELETAL: MUSCLE STRENGTH TESTING 4/5 BILATERAL LOWER EXTREMITIES. THORACIC SPINE: TRIGGER POINTS:, ELICITED WITH PALPATION OVER MID TO LOW THORACIC MUSCLES BILAT.ROJM SPINE AGGREVATES PAIN IN THIS REGION.. DIAGNOSTIC TESTS REVIEWED MRI THORACIC-07/22/19. ASSESSMENTS PAIN IN THORACIC SPINE - M54.6 (PRIMARY) MYALGIA, OTHER SITE - M79.18 TREATMENT PAIN IN THORACIC SPINE NOTES: TPI BILAT LOW THORACIC. PREVENTIVE MEDICINE PAIN CLINIC TEACHING: PROCEDURE TEACHING REVIEWED INFORMATION ON TRIGGER POINT INJECTION PROCEDURE WITH PATIENT. ALSO REVIEWED PRE-PROCEDURE INSTRUCTIONS. PATIENT VERBALIZED AN UNDERSTANDING. ELLEN GILBERT 10/23/2019 12:50:59 PM > . PROCEDURE CODES FA211 ESTABILISHED PATIENT [facility] CHARGE DISPOSITION & COMMUNICATION FOLLOW UP POST (REASON: TPI BILAT LOW THORACIC ) ELECTRONICALLY SIGNED BY RYANN ESQUEDA ON 10/23/2019 AT 03:35 PM EST DISCLAIMER : THIS IS A VISIT SUMMARY EXTRACTED FROM THE [employer] CHART. IT IS NOT A COPY OF THE [employer] PROGRESS NOTE. DESTINY
== END ==
LOC: M PAIN 11:15
PROVIDERS: ATTEND Nurse Practitioner Family
DX: M54.6 Pain in thoracic spine (principal); M79.18 Myalgia, other site; E78.5 Hyperlipidemia, unspecified; K21.9 Gastro-esophageal reflux disease without esophagitis; F43.10 Post-traumatic stress disorder, unspecified; G47.30 Sleep apnea, unspecified; M41.9 Scoliosis, unspecified; Z79.891 Long term (current) use of opiate analgesic; Z79.899 Other long term (current) drug therapy; Z88.6 Allergy status to analgesic agent

== ENCOUNTER 2020-11-24 13:07 | Observation (INO) | payer OTHER ==
[~2020-11-24] VITALS: Ht 172.7 cm; Wt 119.2 kg
[~2020-11-24 13:07] MED LIST changes: +DULoxetine 30 MG CAP (CYMBALTA) PO SCH; +GABA-282 PO; -GABA-843 PO
[2020-11-24] MEDS ORDERED: PANTOPRAZOLE 40MG VIAL (C9113 PER 1) IV ONE (13:35)
[2020-11-24] MEDS ORDERED: GI COCKTAIL 50ML BTL(HYOSCYAMINE/MAALOX/LIDOCAINE VISCOUS)(1:3:1) PO ONE (13:35)
[2020-11-24 13:51] LABS: BASO % 0.3 % (0.0-1.0); EOS # 0.2 10^3/uL (0.0-0.5); EOS % 2.2 % (0.0-3.0); HEMOGLOBIN 14.4 g/dl (13.5-17.5); LYMPH # 2.3 10^3/uL (1.5-5.0); MEAN CORPUSCULAR HEMOGLOBIN 32.2 pg (27.0-33.0); MEAN CORPUSCULAR HGB CONC 34.3 g/dl (32.0-36.5); MONO # 0.9 10^3/uL (0.0-0.8); MONO % 9.5 % (2.0-8.0); NEUTROPHILS # 5.7 10^3/uL (1.5-8.5); NEUTROPHILS % 62.8 % (36.0-66.0); PLATELET COUNT, AUTOMATED 161 10^3/uL (150-450); RED BLOOD COUNT 4.47 10^6/uL (4.30-6.10); WHITE BLOOD COUNT 9.2 10^3/uL (4.0-10.0)
[2020-11-24 14:00] LABS: INR 0.99; PROTHROMBIN TIME 13.2 SECONDS (12.5-14.3)
[2020-11-24 14:01] LABS: PARTIAL THROMBOPLASTIN TIME 28.3 SECONDS (24.2-38.5)
[2020-11-24 14:22] LABS: ALBUMIN 4.4 GM/DL (3.2-5.2); ALT/SGPT 38 U/L (12-78); BILIRUBIN,DIRECT 0.1 MG/DL (0.0-0.2); BILIRUBIN,TOTAL 0.4 MG/DL (0.2-1.0); BLOOD UREA NITROGEN 17 MG/DL (7-18); CALCIUM LEVEL 9.3 MG/DL (8.5-10.1); CARBON DIOXIDE LEVEL 28 MEQ/L (21-32); CHLORIDE LEVEL 113 MEQ/L (98-107); CK-MB VALUE MASS 4.1 NG/ML (<3.6); CPK CREATINE PHOSPHOKINASE 279 U/L (39-308); CREATININE FOR GFR 1.02 MG/DL (0.70-1.30); GLOMERULAR FILTRATION RATE > 60.0 (>60); GLUCOSE, FASTING 93 MG/DL (70-100); LIPASE 120 U/L (73-393); MB/CK RELATIVE INDEX 1.47 (< OR =4); SODIUM LEVEL 144 MEQ/L (136-145); TOTAL PROTEIN 7.5 GM/DL (6.4-8.2); TROPONIN I < 0.02 NG/ML (< 0.10)
[2020-11-24] MEDS ORDERED: ISOVUE-370 76% 100ML VIAL As Ordered ONE (14:42)
--- NOTE | 2020-11-24 15:41 | REP ---
INDICATION: chest pain SOB. COMPARISON: 09/22/2018. TECHNIQUE: CT angiogram chest performed following the intravenous administration of 100 cc of Isovue 370. Sagittal and coronal reconstruction images are performed. FINDINGS: Lungs: 2 subcentimeter nodular opacities in the right upper lobe anteriorly and inferiorly are unchanged since prior CT. A subcentimeter nodule in the left upper lobe on image 37 is also stable. Stability for greater than 2 years indicates benignity. There is a tiny calcified granuloma in the right posterior costophrenic sulcus. Mediastinum: No adenopathy. Pulmonary arteries: No evidence of pulmonary embolism. Marylou: No adenopathy. Axilla: No adenopathy. Pleura: No effusion. Heart: Not enlarged. Thoracic aorta: No aneurysm or dissection. Upper abdominal structures: Unremarkable. Visualized osseous structures: Unremarkable. IMPRESSION: No CT evidence of pulmonary embolism. No infiltrate seen. <Electronically signed by Sahil Merino > 11/24/20 [id number]
[2020-11-24] MEDS ORDERED: NICOTINE POLACRILEX 2 MG GUM PO ONE (16:30)
[2020-11-24] MEDS ORDERED: LOPI600T PO (17:00)
[2020-11-24] MEDS ORDERED: DIAZ5TAB PO (17:00)
[2020-11-24] MEDS ORDERED: CETI-24 PO (17:00)
[2020-11-24] MEDS ORDERED: OMEP-221 PO (17:00)
[2020-11-24] MEDS ORDERED: PRAZ2CAP PO (17:00)
[2020-11-24] MEDS ORDERED: D-101000 PO (17:00)
[2020-11-24] MEDS ORDERED: CALC600T60 PO (17:00)
[2020-11-24] MEDS ORDERED: PRAZ2CAP40 PO (17:00)
[2020-11-24] MEDS ORDERED: DULO30CA9 PO (17:00)
[2020-11-24] MEDS ORDERED: GABA-282 PO (17:00)
[2020-11-24] MEDS ORDERED: ANEXSIA, NORCO 7.5MG/325MG TABLET(HYDROCODONE/APAP) PO PRN (17:15)
[2020-11-24] MEDS ORDERED: NITROGLYCERIN 0.4 MG SUBL TABLET SL PRN (17:15)
[2020-11-24 17:38] LABS: RSV AMPLIFICATION NEGATIVE (NEGATIVE)
--- NOTE | 2020-11-24 18:01 | ECGEPIP ---
[facility] - ED Test Date: 2020-11-24 Pat Name: LASHAWN MITTAL Department: Room: - Gender: Male Radio Operator: MARTHA : 1980 Requested By: MINE Sutton Order Number: [id number] Reading MD: Tootie Mendez Measurements Intervals [place] Rate: 73 P: 46 AK: 154 QRS: 44 QRSD: 86 T: 46 QT: 364 QTc: 401 Interpretive Statements Normal sinus rhythm T wave abnormality, consider ischemia compared 09/22/18 Electronically Signed on 11-24-2020 18:01:09 EDT by Tootie Mendez
--- NOTE | 2020-11-24 18:03 | ECGEPIP ---
[facility] - ED Test Date: 2020-11-24 Pat Name: LASHAWN MITTAL Department: Room: - Gender: Male Nurse Staff: MARI : 1980 Requested By: MINE Sutton Order Number: [id number] Reading MD: Tootie Mendez Measurements Intervals [place] Rate: 72 P: 37 [place]: 150 QRS: 41 QRSD: 88 T: 88 QT: 394 QTc: 431 Interpretive Statements Normal sinus rhythm T wave abnormality, consider ischemia similar 11/24/20 Electronically Signed on 11-24-2020 18:02:37 EDT by Tootie Mendez
[2020-11-24 18:45] VITALS: BP 122/90
--- NOTE | 2020-11-24 19:44 | HPEPDOC ---
General Date of Admission Nov 24, 2020 at 17:11 Date of Service: Nov 24, 2020 Chief Complaint The patient is a 40-year-old male admitted with a reason for visit of Chest Pain. Source: Patient History of Present Illness Mr. Bruce is a 40 year old male with TRUDI on CPAP and tobacco use disorder who presents with chest pain. Patient has chronic back pain the goes from the shoulders down to his legs. He is chronically on gabapentin and PRN Ranier for the pain of which his PCP manages. After receiving his COVID vaccine on Monday, he started to have chest pain. It was substernal, constant, burning/pressure pain that is worse with activity and better at rest. He had associated dyspnea with the chest pain. It was worse last night and rated the pain 5/10. Today, the pain is 2/10. Troponin and EKG was negative, but when he came back from his imaging, he had a short run of atrial fibrillation which resolved. Repeat EKG did not catch this rhythm. Otherwise work up was unremar kable. I reached out cardiology. Recommended out patient 30 day monitor. Patient will be placed in observation for chest pain and arrhythmia. Home Medications Scheduled Calcium Carbonate (Calcium) 600 Mg Tablet, 600 MG PO DAILY, (Reported) Cetirizine HCl (Cetirizine HCl) 10 Mg Tablet, 10 MG PO QHS, (Reported) Cholecalciferol (Vitamin D3) (Vitamin D3) 25 Mcg Capsule, 25 MCG PO DAILY, (Reported) Diazepam (Diazepam) 5 Mg Tablet, 5 MG PO QHS, (Reported) Diclofenac Sodium (Diclofenac Sodium) 75 Mg Tab, 75 MG PO BID, (Reported) Duloxetine Hcl (Duloxetine HCl) 30 Mg Capsule.dr, 90 MG PO DAILY, (Reported) Gabapentin (Gabapentin) 300 Mg Cap, 600 MG PO QAM, (Reported) Gabapentin (Gabapentin) 300 Mg Capsule, 1,200 MG PO QHS, (Reported) Gemfibrozil (Lopid) 600 Mg Tablet, 600 MG PO BID, (Reported) Lamotrigine (Lamotrigine) 200 Mg Tab, 200 MG PO BID, (Reported) Olanzapine (Olanzapine) 10 Mg Tab, 10 MG PO QHS, (Reported) Omeprazole (Omeprazole) 40 Mg Capsule.dr, 40 MG PO QHS, (Reported) Prazosin HCl (Prazosin HCl) 2 Mg Capsule, 2 MG PO QAM, (Reported) Prazosin Hcl (Prazosin HCl) 2 Mg Capsule, 4 MG PO QHS, (Reported) Rosuvastatin Calcium (Crestor) 40 Mg Tab, 40 MG PO DAILY, (Reported) Scheduled PRN Hydrocodone/Acetaminophen (Hydrocodone-Acetamin 7.5-325) 1 Tab Tab, 1 TAB PO QID PRN for PAIN, (Reported) Nitroglycerin (Nitroglycerin) 0.4 Mg Sub, 0.4 MG SL NITRO PRN for CHEST PAIN, (Reported) Allergies Coded Allergies: naproxen (Verified Allergy, Severe, anaphylaxsis, 11/24/20) adhesive (Verified Adverse Reaction, Mild, RASH FROM NICOTINE PATCH ADHESIVE, 11/24/20) CAN USE NICOTINE GUM nicotine (Verified Adverse Reaction, Mild, RASH FROM PATCH ADHESIVE ONLY, 11/24/20) CAN USE NICOTINE GUM Past Medical History Medical History 1. Hyperlipidemia 2. Chronic back pain 3. GERD 4. PTSD 5. Sleep apnea 6. Scoliosis Surgical History 1. Hernia repair Family History Denies knowledge of medical history in parents Social History * Smoker: current smoker Alcohol: Denies Drugs: denies A-FIB/CHADSVASC A-FIB History Current/History of A-Fib/PAF?: No Review of Systems Constitutional: Denies: Chills, Fever Eyes: Denies: Vision change ENT: Denies: Sore Throat Skin: Denies: Rash Pulmonary: Reports: Dyspnea (when chest pain worsens) Cardiovascular: Reports: Chest Pain (Chest pressure, constant, worse with activity) Gastrointestinal: Denies: Nausea, Abdominal Pain Genitourinary: Denies: Dysuria Hematologic: Reports: Bruising (bruise on arm from IV site) Neurological: Denies: Numbness Psych: Reports: Anxiety, Depression Physical Examination General Exam: Positive: Alert, Cooperative Eye Exam: Positive: EOMI; Negative: Sclera icteric ENT Exam: Positive: Atraumatic Neck Exam: Positive: Supple Chest Exam: Positive: Clear to auscultation; Negative: Rales, Rhonchi, Wheezing Heart Exam: Positive: Rate Normal, Regular Rhythm Abdomen Exam: Positive: Normal bowel sounds, Soft; Negative: Tenderness Extremity Exam: Negative: Edema Neuro Exam: Positive: Normal Speech, Cranial Nerves 3-12 NL Psych Exam: Positive: Mental status NL, Mood NL Vital Signs Vital Signs Date Time Temp Pulse Resp B/P (MAP) Pulse Ox O2 Delivery O2 Flow Rate FiO2 11/24/20 18:52 99 97 11/24/20 18:45 16 122/90 (101) 11/24/20 13:07 99.9 Laboratory Data Labs 24H Laboratory Tests 2 11/24/20 13:14: Immature Granulocyte % (Auto) 0.2, Neutrophils (%) (Auto) 62.8, Lymphocytes (%) (Auto) 25.0, Monocytes (%) (Auto) 9.5H, Eosinophils (%) (Auto) 2.2, Basophils (%) (Auto) 0.3, Neutrophils # (Auto) 5.7, Lymphocytes # (Auto) 2.3, Monocytes # (Auto) 0.9H, Eosinophils # (Auto) 0.2, Basophils # (Auto) 0.0, Nucleated Red Blood Cells % (auto) 0.0, Prothrombin Time 13.2, Prothromb Time International Ratio 0.99, Activated Partial Thromboplast Time 28.3, Anion Gap 3L, Glomerular Filtration Rate > 60.0, Calcium Level 9.3, Total Bilirubin 0.4, Direct Bilirubin 0.1, Aspartate Amino Transf (AST/SGOT) 22, Alanine Aminotransferase (ALT/SGPT) 38, Alkaline Phosphatase 65, Total Creatine Kinase 279, Creatine Kinase MB 4.1H, Creatine Kinase MB Relative Index 1.47, Troponin I < 0.02, Total Protein 7.5, Albumin 4.4, Albumin/Globulin Ratio 1.4, Lipase 120, Thyroid Stimulating Hormone (TSH) 2.190, Free Thyroxine 0.90 11/24/20 16:50: Coronavirus (COVID-19)(PCR) NEGATIVE, Influenza Type A (RT-PCR) NEGATIVE, Influenza Type B (RT-PCR) NEGATIVE, Respiratory Syncytial Virus (PCR) NEGATIVE 11/24/20 18:15: Troponin I < 0.02 CBC/BMP Laboratory Tests 11/24/20 13:14 Assessment/Plan Mr. Bruce is a 40 year old male with TRUDI on CPAP and tobacco use disorder who presents with chest pain. Troponin x2 was negative, but patient developed a short run of atrial fibrillation. Discussed with cardiology, patient does not need anticoagulation. If we were able to catch the atrial fibrillation at another time, patient would need cardiac ablation. Otherwise, will monitor patient overnight on telemetry with echocardiogram in the morning tomorrow. Patient will need to see cardiology for 30 day event monitor Plan / VTE VTE Prophylaxis Ordered?: Yes Plan Plan 1. Chest pain -EKG and troponin x2 negative -Unlikely ACS -Monitor overnight with echocardiogram in the AM 2. Atrial flutter -A short run of atrial flutter was observed on telemetry, was not able to catch on EKG -May be secondary to caffeine intake and sleep apnea -Patient will need event monitor outpatient 3. Chronic upper back pain -Continue gabapentin and Ranier 4. Hyperlipidemia -Continue rosuvastatin and gemfibrozil 5. DVT ppx -Lovenox Disposition: Possible discharge tomorrow if no events on telemetry overnight. Patient would need echocardiogram before home. Patient would need 30 day event monitor as well. LYNDON BRAVO DO Nov 24, 2020 19:44
[2020-11-24] MEDS ORDERED: OLANZapine 10 MG TAB PO SCH (21:00)
[2020-11-24] MEDS ORDERED: lamoTRIgine 100MG TAB PO SCH (21:00)
[2020-11-24] MEDS ORDERED: OMEPRAZOLE 20 MG CAP PO SCH (21:00)
[2020-11-24] MEDS ORDERED: CETIRIZINE (ZyrTEC) 10 MG TAB PO SCH (21:00)
[2020-11-24] MEDS ORDERED: diazePAM 5MG TABLET PO SCH (21:00)
[2020-11-24] MEDS ORDERED: GABAPENTIN 400MG CAP PO SCH (21:00)
[2020-11-24] MEDS ORDERED: PRAZOSIN 1 MG CAP PO SCH (21:00)
[2020-11-25] MEDS ORDERED: ENOXAPARIN 40MG/0.4ML SYRINGE (J1650 PER 10MG) SC SCH (09:00)
[2020-11-25] MEDS ORDERED: ROSUVASTATIN 10 MG TAB (CRESTOR) PO SCH (09:00)
[2020-11-25] MEDS ORDERED: GABAPENTIN 300 MG CAP PO SCH (09:00)
[2020-11-25] MEDS ORDERED: PRAZOSIN 1 MG CAP PO SCH (09:00)
== END 2020-11-24 20:20 | disposition left against medical advice (07) ==
LOC: M ED 13:07 → M ED INP 17:11
PROVIDERS: ADMIT Internal Medicine; ATTEND Internal Medicine
DX: R07.89 Other chest pain (principal); R06.00 Dyspnea, unspecified; I48.92 Unspecified atrial flutter; G47.33 Obstructive sleep apnea (adult) (pediatric); G89.29 Other chronic pain; E78.49 Other hyperlipidemia; M41.9 Scoliosis, unspecified; M54.9 Dorsalgia, unspecified; K21.9 Gastro-esophageal reflux disease without esophagitis; F17.218 Nicotine dependence, cigarettes, with other nicotine-induced disorders; Z79.899 Other long term (current) drug therapy; Z88.8 Allergy status to other drugs, medicaments and biological substances
CPT/HCPCS: 36415; 71275; 80048; 80076; 82550; 82553; 83690; 84439; 84443; 84484; 85025; 85610; 85730; 87631; 93005; 93041; 94760; 96374; 99285; C9113; G0378; Q9967

== ENCOUNTER → 2022-12-14 | Outpatient (REF) ==
[~2022-12-14] MED LIST changes: +CALC600T60 PO; +CETI-24 PO; +D-101000 PO; +DIAZ5TAB PO; +DULO30CA9 PO; -DULoxetine 30 MG CAP (CYMBALTA) PO SCH; +LOPI600T PO; -OLAN10TA2 PO; +OLAN1TAB20 PO; +OMEP40CA5 PO; +PRAZ2CAP PO; +PRAZ2CAP40 PO
== END ==
LOC: M PLAIMG 12:47
PROVIDERS: ATTEND Internal Medicine
DX: M47.896 Other spondylosis, lumbar region (principal); M47.897 Other spondylosis, lumbosacral region; M54.50 Low back pain, unspecified

== ENCOUNTER 2023-05-03 23:10 | Emergency (ER) | payer MEDICARE, OTHER ==
[~2023-05-03] VITALS: Ht 172.7 cm; Wt 117.0 kg
[2023-05-03] MEDS ORDERED: ONDANSETRON 4MG 2ML VIAL IV ONE (23:30)
[2023-05-03] MEDS ORDERED: MORPHINE 4 MG/ML 1ML VIAL IV ONE (23:30)
[2023-05-04] MEDS ORDERED: fentaNYL 100 MCG/2 ML INJECTION IV ONE (01:25)
[2023-05-04] MEDS ORDERED: predniSONE 20 MG TAB PO ONE (04:10)
[2023-05-04] MEDS ORDERED: diazePAM 10MG/2ML SYRINGE IM ONE (04:10)
[2023-05-04] MEDS ORDERED: ACETAMINOPHEN *IV* 1,000 MG in IV 1 EA IV ONE (05:40)
[2023-05-04] MEDS ORDERED: MORPHINE 4 MG/ML 1ML VIAL IV PRN (09:20)
[2023-05-04] MEDS ORDERED: diazePAM 10MG/2ML SYRINGE IV ONE (10:30)
[2023-05-04 11:58] LABS: BASO % 0.2 % (0.0-1.0); EOS % 0.1 % (0.0-3.0); HEMATOCRIT 49.7 % (42.0-52.0); HEMOGLOBIN 17.5 g/dl (13.5-17.5); LYMPH # 0.9 10^3/uL (1.5-5.0); LYMPH % 7.4 % (24.0-44.0); MEAN CORPUSCULAR HEMOGLOBIN 32.6 pg (27.0-33.0); MEAN CORPUSCULAR HGB CONC 35.2 g/dl (32.0-36.5); MEAN CORPUSCULAR VOLUME 92.6 fl (80.0-96.0); MONO # 0.1 10^3/uL (0.0-0.8); MONO % 0.9 % (2.0-8.0); NEUTROPHILS # 11.2 10^3/uL (1.5-8.5); NEUTROPHILS % 91.2 % (36.0-66.0); PLATELET COUNT, AUTOMATED 204 10^3/uL (150-450); RED BLOOD COUNT 5.37 10^6/uL (4.30-6.10); WHITE BLOOD COUNT 12.3 10^3/uL (4.0-10.0)
[2023-05-04 12:07] LABS: ERYTHROCYTE SEDIMENTATION RATE 11 mm/hr (0-15)
[2023-05-04 12:19] LABS: C REACTIVE PROTEIN QUANTITATIV < 0.40 MG/DL (<1.0)
[2023-05-04 12:21] LABS: BLOOD UREA NITROGEN 11 MG/DL (9-23); CARBON DIOXIDE LEVEL 27 MMOL/L (20-31); CHLORIDE LEVEL 107 MMOL/L (98-107); GLOMERULAR FILTRATION RATE > 60.0 (>60); GLUCOSE, FASTING 121 MG/DL (60-100); SODIUM LEVEL 142 MMOL/L (136-145)
[2023-05-04] MEDS: HYDROMORPHONE HCL 0.5 MG/ 0.5 ML SYRINGE IV PRN ×4 (13:57→20:14)
[2023-05-04] MEDS ORDERED: KETAMINE HCL IV ONE (15:00)
[2023-05-04] MEDS ORDERED: NS IV ONE (15:00)
[2023-05-04] MEDS ORDERED: VALI5TAB PO (20:32)
[2023-05-04] MEDS ORDERED: PERC5TAB12 PO (20:32)
[2023-05-04] MEDS ORDERED: MEDR4PAK PO (20:32)
[2023-05-04] MEDS ORDERED: diazePAM 5MG TABLET PO ONE (20:50)
[2023-05-04] MEDS ORDERED: PERCOCET 5MG/325MG TAB PO ONE (20:50)
[2023-05-04 20:59] VITALS: BP 140/80; TEMP 98.8; O2SAT 96
== END 2023-05-04 21:05 | disposition home or self-care (01) ==
LOC: M ED 23:10 → EDBD 23:10 → M ED 05-04 21:05
DX: M51.26 Other intervertebral disc displacement, lumbar region (principal); E78.5 Hyperlipidemia, unspecified; R51.9 Headache, unspecified; K21.9 Gastro-esophageal reflux disease without esophagitis; G47.33 Obstructive sleep apnea (adult) (pediatric); F17.200 Nicotine dependence, unspecified, uncomplicated; Z88.8 Allergy status to other drugs, medicaments and biological substances; Z91.048 Other nonmedicinal substance allergy status
CPT/HCPCS: 72131; 72148; 72192; 73552; 80048; 85025; 85652; 86140; 87635; 96365; 96372; 96375; 96376; 99284; J0131; J1170; J2405; J3010; J3360; J7512

== ENCOUNTER 2024-06-25 10:28 | Day surgery (SDC) | payer OTHER ==
[~2024-06-25] VITALS: Ht 172.7 cm; Wt 104.3 kg
[~2024-06-25 10:28] MED LIST changes: +GABA-1172 PO; -GABA-282 PO; +HYDR-4431 PO; +MEDR4PAK PO; +NS 250 ML IV ONE; +PERC5TAB12 PO; +TRAM50TA2 PO; +VALI5TAB PO
[2024-06-25 13:39] VITALS: TEMP 98.9
[2024-06-25 14:00] VITALS: BP 151/94; O2SAT 98
== END 2024-06-25 14:03 | disposition home or self-care (01) ==
LOC: M OPP 10:28
PROVIDERS: ATTEND Surgery
DX: Z12.11 Encounter for screening for malignant neoplasm of colon (principal); Z83.719 Family history of colon polyps, unspecified; K63.5 Polyp of colon; E78.5 Hyperlipidemia, unspecified; K21.9 Gastro-esophageal reflux disease without esophagitis; F17.290 Nicotine dependence, other tobacco product, uncomplicated; G47.33 Obstructive sleep apnea (adult) (pediatric); Z99.89 Dependence on other enabling machines and devices; Z95.1 Presence of aortocoronary bypass graft; Z88.6 Allergy status to analgesic agent; Z88.8 Allergy status to other drugs, medicaments and biological substances; Z91.040 Latex allergy status; Z79.891 Long term (current) use of opiate analgesic; Z79.899 Other long term (current) drug therapy